=== PATIENT | male | born 1990 | race Caucasian/White ===

== ENCOUNTER 2019-06-15 01:48 | Emergency (ER) | payer OTHER ==
[~2019-06-15] VITALS: Ht 170.2 cm; Wt 68.5 kg
[2019-06-15 01:54] VITALS: Ht 170.2 cm; Wt 68.5 kg
[2019-06-15 04:37] VITALS: BP 137/86
== END 2019-06-15 04:37 | disposition home or self-care (01) ==
LOC: ED 01:48
DX: L73.9 Follicular disorder, unspecified (principal)

== ENCOUNTER 2019-09-20 19:02 | Emergency (ER) | payer OTHER ==
[~2019-09-20] VITALS: Ht 167.6 cm; Wt 68.9 kg
[2019-09-20 19:46] VITALS: BP 123/58; Ht 167.6 cm; Wt 68.9 kg
== END 2019-09-20 21:21 | disposition left against medical advice (07) ==
LOC: ED 19:02
DX: Z53.21 Procedure and treatment not carried out due to patient leaving prior to being seen by health care provider (principal)

== ENCOUNTER 2019-09-20 22:28 | Emergency (ER) | payer OTHER ==
[~2019-09-20] VITALS: Ht 167.6 cm; Wt 68.0 kg
[2019-09-20 22:35] VITALS: Ht 167.6 cm; Wt 68.0 kg
[2019-09-21 01:16] VITALS: BP 137/74
== END 2019-09-21 01:16 | disposition home or self-care (01) ==
LOC: ED 22:28
DX: J20.8 Acute bronchitis due to other specified organisms (principal)